=== PATIENT | male | born 1975 | race Two or more races ===

== ENCOUNTER 2024-05-31 10:21 | Emergency (ER) | payer OTHER ==
[2024-05-31 10:50] VITALS: RESP 16; BMI 25.1
[2024-05-31 12:34] LABS: EOSINOPHILS # 0.36 x10^3/uL (0.04-0.54); MEAN PLT VOLUME 10.3 fl (9.4-12.4); RDW 12.8 % (12.1-15.9)
[2024-05-31 12:36] LABS: BASOPHILS # 0.04 x10^3/uL (0.01-0.08); HEMATOCRIT 44.8 % (40.1-51.0); MCHC 33.5 g/dl (32.3-36.5); MEAN CELL VOLUME 93.5 fl (79.0-92.2); MONOCYTE # 0.93 x10^3/uL (0.30-0.82); MONOCYTE % 7.7 % (5.3-12.2); PLATELET COUNT 85 x10^3/uL (163-337)
[2024-05-31 12:40] LABS: INR 1.04 (0.83-1.09); PROTHROMBIN TIME (PATIENT) 11.3 SEC (9.7-13.0)
[2024-05-31 12:43] LABS: ACTIVATED PTT 29.4 SECONDS (25.2-36.5)
[2024-05-31 12:52] LABS: POTASSIUM 3.7 mmol/L (3.5-5.1)
[2024-05-31 12:53] LABS: CALCIUM 9.2 mg/dL (8.5-10.1)
[2024-05-31 12:54] LABS: ALBUMIN 3.8 g/dl (3.4-5.0); BLOOD UREA NITROGEN 12.2 mg/dL (7-18)
[2024-05-31 12:57] LABS: CREATININE 0.8 mg/dL (0.55-1.3)
[2024-05-31 12:58] LABS: BILIRUBIN,TOTAL 0.5 mg/dL (0.2-1); TOT PROT 7.1 g/dl (6.4-8.2)
[2024-05-31 14:29] VITALS: BP 133/82; PULSE 66; TEMP 98.3
== END 2024-05-31 16:30 | disposition home or self-care (01) ==
LOC: JER 10:21
DX: S00.81XA Abrasion of other part of head, initial encounter (principal); S80.211A Abrasion, right knee, initial encounter; S80.212A Abrasion, left knee, initial encounter; R55 Syncope and collapse; M79.10 Myalgia, unspecified site; R05.9 Cough, unspecified; X58.XXXA Exposure to other specified factors, initial encounter
CPT/HCPCS: 0241U-QW; 36415; 70450-TC; 71045-TC-FY; 80053; 84484; 85025; 85610; 85730; 93005; 93010; 99285-25